=== PATIENT | male | born 1995 | race Caucasian/White ===

== ENCOUNTER 2019-09-11 02:10 | Observation (INO) ==
[2019-09-11 03:56] LABS: Basophils % 0.2 % (0.0-0.8); Eosinophils # 0.2 10*3/uL (0.0-0.87); Eosinophils % 1.7 % (0.00-10.9); Hematocrit 40.7 VOL% (42.0-52.0); Immature Granulocytes % 0.3 %; Immature Granulocytes Absolute 0.03 #; Lymphocytes # 1.3 10*3/uL (1.4-4.0); Lymphocytes % 13.1 % (21.2-54.2); Mean Corpuscular HGB Conc 34.4 GM/DL (32-36); Mean Corpuscular Volume 88.3 FL (87-102); Mean Platelet Volume 9.4 FL (9.6-12.0); Monocytes % 9.4 % (1.7-12.7); Neutrophils % 75.3 % (38.7-73.9); Platelet Count 159 T/CUMM (130-400); Red Blood Count 4.61 MC/CUMM (3.8-5.5); White Blood Count 9.5 T/CUMM (4-12)
[2019-09-11 04:34] LABS: Alanine Aminotransferase 18 U/L (16-61); Albumin 3.6 G/DL (3.4-5.0); Alkaline Phosphatase 95 U/L (45-117); Aspartate Amino Transferase 13 U/L (0-37); Bilirubin,Total < 0.39 MG/DL (0.2-1.0); Blood Urea Nitrogen 26 MG/DL (7-18); Estimated Glom Filtration Rate 88 ML/MIN; Glucose 103 MG/DL (74-106); Osmolality,Calculated 279.7 MOS/KG (273-304); Total Protein 6.9 G/DL (6.4-8.3)
[2019-09-11] MEDS ORDERED: CLINDAMYCIN INJ 600 MG in PREMIX 1 EACH IV STA (04:36)
[2019-09-11] MEDS ORDERED: ONDANSETRON 4 MG/2 ML VIAL IV PRN ×2 (06:02→08:33)
[2019-09-11] MEDS ORDERED: MORPHINE 4 MG/1 ML VIAL IV PRN (06:02)
[2019-09-11] MEDS ORDERED: VANCOMYCIN INJ 1,250 MG in SODIUM CHLORIDE 0.9% 250 ML IV SCH (08:00)
[2019-09-11] MEDS: PANTOPRAZOLE 40 MG VIAL IV SCH (08:30)
[2019-09-11] MEDS: DEXTROSE 5% NACL 0.45% 1,000 ML IV SCH ×2 (08:30→14:36)
[2019-09-11] MEDS: LEVOFLOXACIN INJ 500 MG in PREMIX 1 EACH IV SCH (08:30)
[2019-09-11] MEDS ORDERED: MEPERIDINE 25 MG/1 ML VIAL IV PRN (08:33)
[2019-09-11] MEDS ORDERED: diphenhydrAMINE 50 MG/1 ML VIAL IV PRN (08:33)
[2019-09-11] MEDS ORDERED: PROMETHAZINE INJ 25 MG in SODIUM CHLORIDE 0.9% 50 ML IV PRN (08:33)
[2019-09-11] MEDS: metroNIDAZOLE INJ 500 MG in PREMIX 1 EACH IV SCH ×2 (09:37→16:32)
[2019-09-11] MEDS ORDERED: BUPIVACAINE MPF 0.25% 30 ML VIAL ONE (10:34)
[2019-09-11] MEDS ORDERED: LIDOCAINE 1%/EPI INJ 20 ML VIAL ONE (10:34)
[2019-09-11] MEDS ORDERED: fentaNYL 100 MCG/2 ML VIAL ONE (11:14)
[2019-09-11] MEDS ORDERED: SEVOFLURANE 1 UNIT/15 MINUTE INH ONE (11:14)
[2019-09-11] MEDS ORDERED: MIDAZOLAM 2 MG/2 ML VIAL ONE (11:14)
[2019-09-11] MEDS ORDERED: propofoL 200 MG/20 ML VIAL IV ONE (11:14)
[2019-09-11] MEDS ORDERED: LIDOCAINE 2% 5 ML VIAL ONE (11:14)
[2019-09-12] MEDS: metroNIDAZOLE INJ 500 MG in PREMIX 1 EACH IV SCH ×2 (00:31→09:42)
[2019-09-12] MEDS: DEXTROSE 5% NACL 0.45% 1,000 ML IV SCH ×2 (01:44→09:42)
[2019-09-12 08:38] VITALS: BP 141/90
[2019-09-12] MEDS: LEVOFLOXACIN INJ 500 MG in PREMIX 1 EACH IV SCH (09:42)
[2019-09-12] MEDS: PANTOPRAZOLE 40 MG VIAL IV SCH (09:43)
== END 2019-09-12 10:00 | disposition home or self-care (01) ==
LOC: N.ED 02:10 → N.EDINP 02:10 → N.3E 06:19
PROVIDERS: ADMIT Surgery; ATTEND Surgery